=== PATIENT | male | born 1985 | race Two or more races ===

== ENCOUNTER 2016-05-21 12:07 | Emergency (ER) | payer SELFPAY ==
[~2016-05-21] VITALS: Ht 167.6 cm; Wt 81.6 kg
[2016-05-21 14:16] LABS: BILIRUBIN,URINE NEGATIVE (NEG); GLUCOSE,URINE NEGATIVE (NEG); NITRITE,URINE NEGATIVE (NEG); PROTEIN,URINE NEGATIVE (NEG-TRACE); UROBILINOGEN,URINE 0.2 mg/dL (0.2 mg/dL)
[2016-05-21 14:39] LABS: BACTERIA,URINE 0 /HPF (0-FEW); RBC,URINE 0 /HPF (0-2); SQUAMOUS EPITHELIAL CELL,UR OCC /LPF; WBC,URINE OCC /HPF (0-4)
[2016-05-21] MEDS ORDERED: ALPR0.25 PO (14:45)
--- NOTE | 2016-05-21 14:45 | PHYS DOC ---
Past Medical History Past Medical History: No Pertinent History Past Surgical History: Knee Replacement Smoking: Less than 1pk/day Alcohol Use: Occasionally Drug Use: None Adult General Chief Complaint Chief Complaint: ANXIETY/PANIC ATTACK [facility] HPI Patient is a 30 year old male who presents with 2 months of vague symptoms. He reports that he often has mind racing. He has had polydipsia and polyuria. He has diffuse body aches with occasional cramping in his hands. He has intermittent lightheaded feeling. He often craves sweets in the lightheaded feeling improved after eating something sweet. He has had unintentional weight loss of approximately 8 pounds. He is a family history of diabetes but no known personal history of diabetes. He admits to symptoms of anxiety but has never had a formal diagnosis of anxiety. He denies thoughts of hurting himself or others. He does not have a PCP. Review of Systems Review of Systems Constitutional: Denies fever or chills. [] Eyes: Denies change in visual acuity, redness, or eye pain. [] HENT: Denies ear pain, nasal congestion or sore throat. [] Respiratory: Denies cough or shortness of breath. [] Cardiovascular: Denies chest pain, palpitations or edema. [] GI: Denies abdominal pain, nausea, vomiting, bloody stools or diarrhea. [] : Denies dysuria, hematuria or urinary frequency. [] Musculoskeletal: Denies back pain or joint pain. Reports body aches and cramping in the hands intermittently. Integument: Denies rash or skin lesions. [] Neurologic: Denies headache, focal weakness or sensory changes. Reports intermittent feeling lightheaded. Endocrine: Reports polyuria and polydipsia. Reports unintentional weight loss. Psych: Denies depression. Denies SI or HI. Reports anxiety. All systems reviewed and negative unless otherwise stated in the HPI. Allergies Allergies Allergies Coded Allergies Type Severity Reaction Last Updated Verified Penicillins Allergy Intermediate Rash 05/21/16 Yes Physical Exam Physical Exam Constitutional: Well developed, well nourished, no acute distress, non-toxic appearance. [] HENT: Normocephalic, atraumatic, bilateral external ears normal, oropharynx moist, no oral exudates, nose normal. [] Eyes: PERRLA, EOMI, conjunctiva normal, no discharge. [] Neck: Normal range of motion, no tenderness, supple, no stridor. [] Cardiovascular: Heart rate regular rhythm, no murmur [] Lungs & Thorax: Bilateral breath sounds clear to auscultation without wheezes, rales, or rhonchi. Abdomen: Bowel sounds normal, soft, no tenderness, no masses, no pulsatile masses. [] Skin: Warm, dry, no erythema, no rash. [] Back: No tenderness, no CVA tenderness. [] Extremities: No tenderness, no cyanosis, no clubbing, ROM intact, no edema. [] Neurologic: Alert and oriented X 3, normal motor function, normal sensory function, no focal deficits noted. [] Psychologic: Affect normal, judgement normal, mood normal. [] Current Patient Data Vital Signs Vital Signs Date Time Temp Pulse Resp B/P Pulse Ox O2 Delivery O2 Flow Rate FiO2 05/21/16 15:01 81 18 127/79 99 Room Air 05/21/16 12:51 98.2 98.2 Lab Values Laboratory Tests Test 05/21/16 13:17 05/21/16 14:07 Glucose (Fingerstick) 92mg/dL (70-99) Urine Color Yellow Urine Clarity Clear Urine pH 6.0 Urine Specific [place] 1.015 Urine Protein Negativemg/dL (NEG-TRACE) Urine Glucose (UA) Negativemg/dL (NEG) Urine Ketones (Stick) Negativemg/dL (NEG) Urine Blood Negative (NEG) Urine Nitrite Negative (NEG) Urine Bilirubin Negative (NEG) Urine Urobilinogen Dipstick 0.2mg/dL (0.2 mg/dL) Urine Leukocyte Esterase Negative (NEG) Urine RBC 0/HPF (0-2) Urine WBC Occ/HPF (0-4) Urine Squamous Epithelial Cells Occ/LPF Urine Bacteria 0/HPF (0-FEW) EKG EKG [] Radiology/Procedures Radiology/Procedures [] Course & Med Decision Making Course & Med Decision Making Pertinent Labs and Imaging studies reviewed. (See chart for details) Patient presents with 2 months of vague symptoms. Some of his symptoms are consistent with undiagnosed diabetes. Accu-Chek was 92, possibly 3 hours postprandial. UA was unremarkable for glucose or protein. He is discharged home with prescription for Xanax. He is given contact information for primary care providers and instructed to establish care with a PCP for additional testing. Return precautions were discussed. He verbalizes understanding and agrees with plan. Alanon Disclaimer Dragon Disclaimer This electronic medical record was generated, in whole or in part, using a voice recognition dictation system. Departure Departure Impression: Primary Impression: Anxiety Disposition: 01 HOME, SELF-CARE Condition: STABLE Referrals: NO PCP (PCP) Patient Instructions: Anxiety and Panic Attacks, [id number] Additional Instructions: Your blood sugar and urine tests were normal today. It is important that you follow-up with a primary care doctor if your symptoms continue. Return to the emergency department if you have any new or concerning symptoms. Scripts Alprazolam (Xanax)0.25 Mg Tablet1 Tab PO DAILY #15 TAB Prov:GIOVANNI OVERTON 05/21/16 GIOVANNI OVERTON May 21, 2016 14:45
[2016-05-21 15:01] VITALS: BP 127/79
== END 2016-05-21 15:04 | disposition home or self-care (01) ==
LOC: ER 12:07
DX: F41.9 Anxiety disorder, unspecified (principal); R63.1 Polydipsia; R35.8 Other polyuria; F17.200 Nicotine dependence, unspecified, uncomplicated; M79.1 Myalgia
CPT/HCPCS: 81001; 82947; 99283; 99284